=== PATIENT | female | born 1950 | race Caucasian/White ===

== ENCOUNTER → 2017-11-20 | Outpatient (CLI) | payer MEDICARE, BC ==
[~2017-11-20] MED LIST: FLU180SY11 IM; PNEU0.5D3 IM; [UNRECOGNIZED DRUG - CODE] MC
--- NOTE | 2017-11-20 11:12 | RADIOLOGY IMAGING REPORT ---
FACILITY: [facility] PATIENT NAME: Devorah Jeffers : 1950 MR: [id number] V: [id number] EXAM DATE: ORDERING PHYSICIAN: THAO READ TECHNOLOGIST: Location: [facility] [place] Patient: Devorah Jeffers : 1950 Visit/Account:[id number] Date of Sevice: 11/20/2017 DEXA Scan Clinical history: Postmenopausal estrogen deficiency, osteopenia, family history of osteoporosis. Comparison: None available. LUMBAR SPINE: The bone mineral density (BMD) measured from L1-L4 correlates with a Z-score 1.2 and a T-score of -0. 4 which is Normal as defined by the World Health Organization. The corresponding risk of fracture in the lumbar spine is Not increased compared with a young adult reference population. HIP: Bone mineral density (BMD) measured in the Left total hip region correlates with a Z-score 0.3 and a T-score of -1 which is Normal as defined by the World Health Organization. The corresponding risk of fracture in the hip is 2 times increased compared with a young adult reference population. T score left femoral neck -0.8 Bone mineral density (BMD) measured in the Femoral Neck region measures 0.924 g/cm2. Impression: 1. Lumbar spine: Normal. 2. Left Hip: Normal. 3. Femoral Neck: Bone Mineral Density is 0.924 g/cm2 The next DEXA scan of this patient should include the following sites: L1-L4 and the left hip. FRAX? WHO Fracture Risk Assessment Tool link: <http://www.shef.ac.uk/FRAX/tool.jsp?locationValue=9> PLEASE NOTE: 1) The World Health Organization defines low BMD as follows: T-score Normal > -1 Osteopenia < -1 and > -2.5 Osteoporosis < -2.5 without fractures Established osteoporosis < -2.5 with fractures 2) In general, you may wish to consider: Diagnosis Treatment Follow-up DEXA Normal BMD Prevention 2-3 years Osteopenia Prevention/therapy 1-2 years Osteoporosis Therapy Yearly 3) Fracture risk estimated from the T-score is more accurate for vertebral fractures (often spontane ous) than for hip fractures. Report Dictated By: Sherry Purdy MD at 11/20/2017 11:08 AM Report E-Signed By: Sherry Purdy MD at 11/20/2017 11:09 AM KOMALN:[email or web address]
== END ==
LOC: RAD 02:18
PROVIDERS: ATTEND Emergency Medicine
DX: Z78.0 Asymptomatic menopausal state (principal)
CPT/HCPCS: 77080

== ENCOUNTER → 2018-02-12 | Outpatient (CLI) | payer MEDICARE, BC ==
[2018-02-12 10:10] LABS: PLATELET COUNT, AUTOMATED 296 K/uL (150-450)
[2018-02-12 10:29] LABS: LDL CHOLESTEROL 113 mg/dl
== END ==
LOC: LAB 09:49
PROVIDERS: ATTEND Emergency Medicine
DX: E78.5 Hyperlipidemia, unspecified (principal); K51.90 Ulcerative colitis, unspecified, without complications
CPT/HCPCS: 36415; 81001; 82040; 82247; 82310; 82374; 82435; 82465; 82565; 82947; 83718; 84075; 84132; 84155; 84295; 84443; 84450; 84460; 84478; 84520; 85025